=== PATIENT | male | born 1985 | race Caucasian/White ===

== ENCOUNTER 2018-02-08 01:10 | Emergency (ER) | payer MEDICAID ==
[2018-02-08] MEDS ORDERED: Ketorolac 30 MG/ML SDV IVPUSH ONE (01:17)
--- NOTE | 2018-02-08 01:24 | EDM.PDOC ---
ED HPI GENERAL MEDICAL PROBLEM - General Chief Complaint: Lower Extremity Injury/Pain Stated Complaint: MEDICAL VIA [facility] Time Seen by Provider: 02/08/18 01:10 Source of Information: Reports: Patient, EMS, RN History Limitations: Reports: No Limitations - History of Present Illness INITIAL COMMENTS - FREE TEXT/NARRATIVE: 33 yo male got knocked down by a cow tonight. Arrives via EMS with pain in the R hip area. Dilaudid 2 mg IV given en route. Onset: Today Onset Date: 02/08/18 Onset Time: 00:35 Duration: Minutes:, Constant Location: Reports: Pelvis (right), Lower Extremity, Right Quality: Reports: Ache Severity: Moderate Improves with: Reports: Rest Worsens with: Reports: Movement Context: Reports: Trauma Associated Symptoms: Reports: No Other Symptoms Treatments [employer]: Reports: Other (see below) (IV Dilaudid) Right Hip Pain Score (Numeric/FACES): 2 - Related Data Allergies Allergy/AdvReac Type Severity Reaction Status Date / Time methylphenidate Allergy Hives Verified 02/08/18 01:12 [From Ritalin] Home Meds: Home Meds Cyclobenzaprine [Flexeril] 10 mg PO ASDIRECTED 02/08/18 [History] FLUoxetine HCl [Prozac] 40 mg PO BID 02/08/18 [History] buPROPion [Wellbutrin] 100 mg PO DAILY 02/08/18 [History] traZODone 100 mg PO DAILY 02/08/18 [History] Review of Systems - Review of Systems Review Of Systems: See Below Constitutional: Reports: No Symptoms Eyes: Reports: No Symptoms Ears: Reports: No Symptoms Nose: Reports: No Symptoms Mouth/Throat: Reports: No Symptoms Respiratory: Reports: No Symptoms Cardiovascular: Reports: No Symptoms GI/Abdominal: Reports: No Symptoms Musculoskeletal: Reports: Joint Pain (Right hip area) Skin: Reports: No Symptoms Neurological: Reports: No Symptoms Psychiatric: Reports: No Symptoms ED EXAM, GENERAL - Physical Exam Exam: See Below Exam Limited By: No Limitations General Appearance: Alert, WD/WN, No Apparent Distress Eye Exam: Bilateral Eye: Normal Inspection Ears: Normal External Exam, Normal Canal, Hearing Grossly Normal Ear Exam: Bilateral Ear: Auricle Normal, Canal Normal Nose: Normal Inspection, Normal Mucosa, No Blood Throat/Mouth: Normal Inspection, Normal Lips, Normal Oropharynx, Normal Voice, No Airway Compromise Head: Atraumatic, Normocephalic Neck: Normal Inspection, Supple, Non-Tender Respiratory/Chest: No Respiratory Distress, Lungs Clear, Normal Breath Sounds, No Accessory Muscle Use Cardiovascular: Regular Rate, Rhythm, No Edema GI/Abdominal: Normal Bowel Sounds, Soft, Non-Tender, No Distention Back Exam: Normal Inspection. No: CVA Tenderness (R), CVA Tenderness (L) Extremities: Normal Inspection, No Pedal Edema, Limited Range of Motion (unable to move R leg due to pain). No: Normal Range of Motion, Non-Tender Neurological: Alert, Oriented, CN II-XII Intact, Normal Cognition, No Motor/ Sensory Deficits Psychiatric: Normal Affect, Normal Mood Skin Exam: Warm, Dry, Intact, Normal Color, No Rash, Other (Covered in cow manure.) Course - Vital Signs Last Recorded V/S: Last Vital Signs Temp 35.9 C 02/08/18 01:23 Pulse 64 02/08/18 01:23 Resp 16 02/08/18 01:23 BP 127/80 02/08/18 01:23 Pulse Ox 99 02/08/18 01:23 - Orders/Labs/Meds Orders: Active Orders 24 hr Category Date Time Status Hip Min 2V or 3V Rt [CR] Stat Exams 02/08/18 01:17 Taken Pelvis 1V or 2V [CR] Stat Exams 02/08/18 01:17 Taken Meds: Medications Discontinued Medications Generic Name Dose Route Start Last Admin Trade Name Freq PRN Reason Stop Dose Admin Ketorolac Tromethamine 30 mg 02/08/18 01:17 02/08/18 01:35 Toradol IVPUSH 02/08/18 01:18 30 mg ONETIME ONE Administration - Radiology Interpretation Free Text/Narrative:: pelvis X-ray-neg R hip X-ray-neg Departure - Departure Time of Disposition: 02:35 Disposition: Home, Self-Care 01 Condition: Fair Clinical Impression: Contusion of right hip Qualifiers: Encounter type: initial encounter Qualified Code(s): S70.01XA - Contusion of right hip, initial encounter - Discharge Information Referrals: PCP,None [Primary Care Provider] - Forms: ED Department Discharge - My Orders Last 24 Hours: My Active Orders 02/08/18 01:17 Hip Min 2V or 3V Rt [CR] Stat Pelvis 1V or 2V [CR] Stat - Assessment/Plan Last 24 Hours: My Active Orders 02/08/18 01:17 Hip Min 2V or 3V Rt [CR] Stat Pelvis 1V or 2V [CR] Stat
--- NOTE | 2018-02-10 08:50 | CR ---
[facility] Clinical History: Injury Findings: No acute fracture or dislocation is noted. No destructive changes are present. Impression: Negative
--- NOTE | 2018-02-10 08:50 | CR ---
Hip Min 2V or 3V Rt CLINICAL HISTORY: Injury FINDINGS: No acute fracture or dislocation is noted. No destructive changes are present. The joint sp aces are maintained Impression: Negative.
== END 2018-02-08 03:31 | disposition home or self-care (01) ==
LOC: JP.ED 01:10
DX: S70.01XA Contusion of right hip, initial encounter (principal); Z88.8 Allergy status to other drugs, medicaments and biological substances; Z79.899 Other long term (current) drug therapy; W55.22XA Struck by cow, initial encounter
CPT/HCPCS: 72170; 73502; 96374; 99284; J1885; 99283

== ENCOUNTER 2018-05-14 18:27 | Emergency (ER) | payer MEDICAID ==
--- NOTE | 2018-05-14 19:49 | EDM.PDOC ---
ED HPI GENERAL MEDICAL PROBLEM - General Chief Complaint: Upper Extremity Injury/Pain Stated Complaint: RIGHT HAND INJURY, PUNCHED COW Time Seen by Provider: 05/14/18 19:40 Source of Information: Reports: Patient History Limitations: Reports: No Limitations - History of Present Illness INITIAL COMMENTS - FREE TEXT/NARRATIVE: 33-year-old male with a right hand injury. 19 hours ago he punched a cow when it wasn't cooperating. No other injury. His hand is now swollen and painful and he wants it checked. Onset: Sudden Location: Reports: Upper Extremity, Right Quality: Reports: Throbbing Worsens with: Reports: Movement Associated Symptoms: Reports: No Other Symptoms Righrt Hand Pain Score (Numeric/FACES): 10 - Related Data Allergies Allergy/AdvReac Type Severity Reaction Status Date / Time methylphenidate Allergy Hives Verified 05/14/18 19:36 [From Ritalin] Home Meds: Home Meds Cyclobenzaprine [Flexeril] 10 mg PO ASDIRECTED 02/08/18 [History] FLUoxetine HCl [Prozac] 40 mg PO BID 02/08/18 [History] buPROPion [Wellbutrin] 100 mg PO DAILY 02/08/18 [History] traZODone 100 mg PO DAILY 02/08/18 [History] Celecoxib 200 mg PO BID 05/14/18 [History] Past Medical History HEENT History: Reports: Hard of Hearing, Impaired Vision Genitourinary History: Reports: None Musculoskeletal History: Reports: Fracture, Other (See Below) Other Musculoskeletal History: lumbar back trouble Neurological History: Reports: Concussion Psychiatric History: Reports: ADHD, Anxiety, Depression, PTSD - Infectious Disease History Infectious Disease History: Reports: Chicken Pox - Past Surgical History HEENT Surgical History: Reports: Tonsillectomy Male Surgical History: Reports: Other (See Below) Other Male Surgeries/Procedures: inguinal hernia Social & Family History - Tobacco Use Smoking Status *Q: Current Every Day Smoker Years of Tobacco use: 25 Packs/Tins Daily: 1 Second Hand Smoke Exposure: No - Caffeine Use Caffeine Use: Reports: Energy Drinks, Soda - Alcohol Use Days Per Week of Alcohol Use: 2 Number of Drinks Per Day: 2 Total Drinks Per Week: 4 - Recreational Drug Use Recreational Drug Use: No Review of Systems - Review of Systems Review Of Systems: See Below Constitutional: Denies: Fever Respiratory: Denies: Shortness of Breath Cardiovascular: Denies: Chest Pain GI/Abdominal: Denies: Abdominal Pain Skin: Reports: Bruising (Some bruising of the hand along with swelling) Neurological: Denies: Paresthesia ED EXAM, GENERAL - Physical Exam Exam: See Below Exam Limited By: No Limitations General Appearance: Alert, No Apparent Distress Head: Atraumatic Respiratory/Chest: No Respiratory Distress Extremities: Other (Exam is otherwise limited to the right hand. There is swelling and tenderness over the dorsal aspect of the hand over the fourth and fifth metacarpal. Slight bony tenderness, no deformity.) Course - Vital Signs Last Recorded V/S: Last Vital Signs Temp 97.9 F 05/14/18 19:34 Pulse 94 05/14/18 19:34 Resp 12 05/14/18 19:34 BP 127/94 H 05/14/18 19:34 Pulse Ox 99 05/14/18 19:34 - Orders/Labs/Meds Orders: Active Orders 24 hr Category Date Time Status Hand Comp Min 3V Rt [CR] Stat Exams 05/14/18 19:46 Taken - Re-Assessments/Exams Free Text/Narrative Re-Assessment/Exam: 05/14/18 19:49 Right hand x-ray was obtained. Departure - Departure Time of Disposition: 20:07 Disposition: Home, Self-Care 01 Condition: Good Clinical Impression: Contusion of right hand, initial encounter - Discharge Information Instructions: Contusion, [id number] Referrals: Sandie Blake PA-C [Primary Care Provider] - Forms: ED Department Discharge Care Plan Goals: Wrap hand for comfort and swelling, ibuprofen should help and avoid further injury if possible. Recheck in 5-7 days if not improving satisfactorily. - My Orders Last 24 Hours: My Active Orders 05/14/18 19:46 Hand Comp Min 3V Rt [CR] Stat - Assessment/Plan Last 24 Hours: My Active Orders 05/14/18 19:46 Hand Comp Min 3V Rt [CR] Stat
--- NOTE | 2018-05-15 08:49 | CR ---
Hand Comp Min 3V Rt CLINICAL HISTORY: Injury FINDINGS: There is no acute fracture or dislocation of the hand. There is some minimal deformity of the distal aspect of the fifth metacarpal which may be related to old injury. Impression: No acute fracture or dislocation
== END 2018-05-14 20:15 | disposition home or self-care (01) ==
LOC: JP.ED 18:27
DX: S60.221A Contusion of right hand, initial encounter (principal); F17.210 Nicotine dependence, cigarettes, uncomplicated; Z88.8 Allergy status to other drugs, medicaments and biological substances; W55.22XA Struck by cow, initial encounter
CPT/HCPCS: 73130-26-RT; 73130-RT; 99284

== ENCOUNTER 2018-10-12 13:45 | Emergency (ER) | payer MEDICAID ==
--- NOTE | 2018-10-12 15:38 | EDM.PDOC ---
ED HPI GENERAL MEDICAL PROBLEM - General Chief Complaint: Neck Problem Stated Complaint: SORE SHOULDER Time Seen by Provider: 10/12/18 15:24 Source of Information: Reports: Patient, RN Notes Reviewed History Limitations: Reports: No Limitations - History of Present Illness INITIAL COMMENTS - FREE TEXT/NARRATIVE: 33-year-old gentleman presents emergency department day complaint of neck pain, he states been going on for a couple of days denies any trauma he does do some heavy lifting at work which may be related to this not sure no difficulty swallowing or difficulty breathing Right Upper Back Pain Score (Numeric/FACES): 8 - Related Data Allergies Allergy/AdvReac Type Severity Reaction Status Date / Time methylphenidate Allergy Hives Verified 10/12/18 14:09 [From Ritalin] Home Meds: Home Meds FLUoxetine HCl [Prozac] 40 mg PO BID 02/08/18 [History] buPROPion [Wellbutrin] 100 mg PO DAILY 02/08/18 [History] traZODone 100 mg PO BEDTIME PRN 02/08/18 [History] Celecoxib 200 mg PO BID 05/14/18 [History] Pantoprazole Sodium 40 mg PO DAILY 10/12/18 [History] Past Medical History HEENT History: Reports: Hard of Hearing, Impaired Vision Gastrointestinal History: Reports: GERD Musculoskeletal History: Reports: Fracture, Other (See Below) Other Musculoskeletal History: lumbar back trouble Neurological History: Reports: Concussion Psychiatric History: Reports: ADHD, Anxiety, Depression, PTSD - Infectious Disease History Infectious Disease History: Reports: Chicken Pox - Past Surgical History HEENT Surgical History: Reports: Tonsillectomy Male Surgical History: Reports: Other (See Below) Other Male Surgeries/Procedures: inguinal hernia Social & Family History - Tobacco Use Smoking Status *Q: Light Tobacco Smoker Years of Tobacco use: 14 Packs/Tins Daily: 0.1 - Caffeine Use Caffeine Use: Reports: Coffee - Recreational Drug Use Recreational Drug Use: No ED ROS GENERAL - Review of Systems Review Of Systems: See Below (Findings canceled it their winter lab still) Constitutional: Reports: No Symptoms ( make sure his kidney function is) HEENT: Reports: No Symptoms Respiratory: Reports: No Symptoms Cardiovascular: Reports: Dyspnea on Exertion Musculoskeletal: Reports: Neck Pain ED EXAM, UPPER BACK/NECK PAIN - Physical Exam Exam: See Below Text/Narrative:: Examination of the neck is supple no thyromegaly no tracheal deviation he is tender to palpation paraspinal muscles predominately along the deltoid and rhomboid area on the right side Exam Limited By: No Limitations General Appearance: Alert, WD/WN, No Apparent Distress Cardiovascular/Respiratory: No Respiratory Distress Course - Vital Signs Last Recorded V/S: Last Vital Signs Temp 95.9 F 10/12/18 14:12 Pulse 74 10/12/18 14:12 Resp 16 10/12/18 14:12 BP 116/73 10/12/18 14:12 Pulse Ox 100 10/12/18 14:12 - Orders/Labs/Meds Meds: Medications Discontinued Medications Generic Name Dose Route Start Last Admin Trade Name Freq PRN Reason Stop Dose Admin Cyclobenzaprine HCl 10 mg 10/12/18 15:34 10/12/18 15:44 Flexeril PO 10/12/18 15:35 10 mg ONETIME ONE Administration Ketorolac Tromethamine 60 mg 10/12/18 15:34 10/12/18 15:44 Toradol IM 10/12/18 15:35 60 mg ONETIME ONE Administration Departure - Departure Time of Disposition: 16:21 (On) Disposition: Home, Self-Care 01 Condition: Fair Clinical Impression: Rhomboid muscle strain Qualifiers: Encounter type: initial encounter Qualified Code(s): S29.012A - Strain of muscle and tendon of back wall of thorax, initial encounter - Discharge Information Referrals: Sandie Blake PA-C [Primary Care Provider] - Forms: ED Department Discharge Additional Instructions: Continued ibuprofen or Tylenol as needed for pain control, use Flexeril as needed for muscle relaxant, Please followup with your primary care provider in 3-5 days if not better, please call return to the emergency department with worsening of symptoms. - Assessment/Plan Plan: Assessment Acuity = acute Site and laterality = rhomboid strain Etiology = probably secondary lifting injury Manifestations = none Location of injury = Home Lab values = none Plan He had good improvement with combination Flexeril and Toradol discharge home with Flexeril 10 mg by mouth 3 times a day when necessary total #15 follow-up primary care 3-5 days if not better This note was dictated using [employer] voice recognition software please call with any questions on syntax or grammar.
[2018-10-12] MEDS: Cyclobenzaprine 10 MG Tab PO ONE (15:44)
[2018-10-12] MEDS: Ketorolac 60 MG/2 ML SDV IM ONE (15:44)
== END 2018-10-12 16:32 | disposition home or self-care (01) ==
LOC: JP.ED 13:45
DX: S29.012A Strain of muscle and tendon of back wall of thorax, initial encounter (principal); F17.210 Nicotine dependence, cigarettes, uncomplicated; Z88.8 Allergy status to other drugs, medicaments and biological substances; Z79.899 Other long term (current) drug therapy; X50.0XXA Overexertion from strenuous movement or load, initial encounter
CPT/HCPCS: 96372; 99283; A9270; J1885

== ENCOUNTER 2021-02-04 09:15 | Emergency (ER) | payer MEDICAID ==
[2021-02-04] MEDS ORDERED: Lactated Ringers 1,000 ML IV ONE ×2 (09:20→10:32)
[2021-02-04] MEDS ORDERED: levETIRAcetam 1,000 MG in Sodium Chloride 0.9% 100 ML IV ONE ×2 (09:34→10:00)
--- NOTE | 2021-02-04 09:52 | EDM.PDOC ---
ED HPI GENERAL MEDICAL PROBLEM - General Chief Complaint: Behavioral/Psych Stated Complaint: OVERDOSE Time Seen by Provider: 02/04/21 09:20 Source of Information: Reports: EMS, Old Records. Denies: Patient History Limitations: Reports: Other (altered LOC) - History of Present Illness INITIAL COMMENTS - FREE TEXT/NARRATIVE: 36 yo male employee of [employer] was brought from work via EMS for altered LOC. He wrote a note implying OD of propranolol. It is unclear if he ingested anything else or when. Has an order of protection against being near his ? . No seizure hx documented. He is obtunded on arrival and not able to offer any history. Onset: Today Onset Date: 02/04/21 Duration: Minutes: (?) Location: Reports: Generalized Quality: Reports: Other (pain not reported) Severity: Severe (severely altered) Improves with: Reports: None Worsens with: Reports: Other (? time) Context: Reports: Other (See HPI) Associated Symptoms: Reports: Seizure (in ER. ) Treatments [employer]: Reports: Other (see below) (none) - Related Data Allergies Allergy/AdvReac Type Severity Reaction Status Date / Time methylphenidate Allergy Hives Verified 10/12/18 14:09 [From Ritalin] Home Meds: Home Meds FLUoxetine HCl [Prozac] 40 mg PO BID 02/08/18 [History] buPROPion [Wellbutrin] 100 mg PO DAILY 02/08/18 [History] traZODone 100 mg PO BEDTIME PRN 02/08/18 [History] Celecoxib 200 mg PO BID 05/14/18 [History] Pantoprazole Sodium 40 mg PO DAILY 10/12/18 [History] Propranolol [Inderal] 20 mg PO Q6H PRN 02/04/21 [History] Past Medical History HEENT History: Reports: Hard of Hearing, Impaired Vision Gastrointestinal History: Reports: GERD Musculoskeletal History: Reports: Fracture, Other (See Below) Other Musculoskeletal History: lumbar back trouble Neurological History: Reports: Concussion Psychiatric History: Reports: ADHD, Anxiety, Depression, PTSD - Infectious Disease History Infectious Disease History: Reports: Chicken Pox - Past Surgical History HEENT Surgical History: Reports: Tonsillectomy Male Surgical History: Reports: Other (See Below) Other Male Surgeries/Procedures: inguinal hernia Social & Family History - Caffeine Use Caffeine Use: Reports: Coffee ED ROS GENERAL - Review of Systems Review Of Systems: Unable To Obtain Reason Not Obtained: altered LOC Constitutional: Reports: Malaise, Weakness (generalized) ED EXAM, NEURO - Physical Exam Exam: See Below Exam Limited By: No Limitations General Appearance: WD/WN, Obtunded. No: Alert Eye Exam: Bilateral Eye: Normal Inspection Ears: Normal External Exam, Normal Canal, Hearing Grossly Normal, Normal TMs Nose: Normal Inspection, No Blood Throat/Mouth: Normal Inspection, Normal Lips, Normal Oropharynx, Normal Voice, No Airway Compromise Head Exam: Atraumatic, Normocephalic Neck: Normal Inspection Respiratory/Chest: No Respiratory Distress, Lungs Clear, Normal Breath Sounds, No Accessory Muscle Use Cardiovascular: Regular Rate, Rhythm, No Edema GI/Abdominal: Normal Bowel Sounds, Soft, Non-Tender, No Distention Neurological: Other (obtunded). No: Alert, Oriented x 3 Back Exam: Normal Inspection Extremities: Normal Inspection, Normal Range of Motion, No Pedal Edema Psychiatric: Other (not responding) Skin Exam: Warm, Dry, Intact, Normal Color, No Rash #1 Interpretation EKG Date: 02/04/21 Time: 10:50 Rhythm: NSR Rate (Beats/Min): 56 Mobile: Normal P-Wave: Present QRS: Normal ST-T: Normal QT: Normal Comparison: NA - No Prior EKG (LVH present) Course - Vital Signs Last Recorded V/S: Last Vital Signs Temp 37.1 C 02/04/21 09:43 Pulse 55 L 02/04/21 11:06 Resp 14 02/04/21 11:06 BP 124/70 02/04/21 11:06 Pulse Ox 98 02/04/21 11:06 - Orders/Labs/Meds Orders: Active Orders 24 hr Category Date Time Status Cardiac Monitoring [RC] .As Directed Care 02/04/21 09:20 Active EKG Documentation Completion [RC] ASDIRECTED Care 02/04/21 10:31 Active Church Catheter Insertion [Insert Urinary Catheter] [OM. Care 02/04/21 09:30 Ordered PC] Q24H Urinary Catheter Assessment [RC] ASDIRECTED Care 02/04/21 09:20 Active EKG 12 Lead [EK] Routine Ther 02/04/21 10:30 Ordered Labs: Laboratory Tests 06/12/21 06/12/21 06/12/21 Range/Units 09:20 09:20 09:20 WBC 6.6 (4.5-11.0) K/uL RBC 4.64 (4.30-5.90) M/uL Hgb 14.0 (12.0-15.0) g/dL Hct 41.1 (40.0-54.0) % MCV 89 (80-98) fL MCH 30 (27-31) pg MCHC 34 (32-36) % Plt Count 313 (150-400) K/uL Sodium 142 (140-148) mmol/L Potassium 3.4 L (3.6-5.2) mmol/L Chloride 104 (100-108) mmol/L Carbon Dioxide 26 (21-32) mmol/L Anion Gap 15.4 H (5.0-14.0) mmol/L BUN 11 (7-18) mg/dL Creatinine 1.6 H (0.8-1.3) mg/dL Est Cr Clr Drug Dosing 70.73 mL/min Estimated GFR (MDRD) 49 L (>60) Glucose 131 H (74-106) mg/dL Calcium 8.9 (8.5-10.1) mg/dL Phosphorus (2.5-4.9) mg/dL Magnesium (1.8-2.4) mg/dL Total Bilirubin 0.5 D (0.2-1.0) mg/dL AST 22 (15-37) U/L ALT 32 D (12-78) U/L Alkaline Phosphatase 111 (46-116) U/L Total Protein 7.2 (6.4-8.2) g/dL Albumin 4.1 (3.4-5.0) g/dL Globulin 3.1 (2.3-3.5) g/dL Albumin/Globulin Ratio 1.3 (1.2-2.2) Urine Color (YELLOW) Urine Appearance (CLEAR) Urine pH (5.0-8.0) Ur Specific [place] (1.008-1.030) Urine Protein (NEGATIVE) mg/dL Urine Glucose (UA) (NEGATIVE) mg/dL Urine Ketones (NEGATIVE) mg/dL Urine Occult Blood (NEGATIVE) Urine Nitrite (NEGATIVE) Urine Bilirubin (NEGATIVE) Urine Urobilinogen (0.2-1.0) EU/dL Ur Leukocyte Esterase (NEGATIVE) Urine RBC (0-5) Urine WBC (0-5) Ur Epithelial Cells Amorphous Sediment Urine Bacteria Urine Mucus Salicylates 2.5 (2.0-20.0) mg/dL Urine Opiates Screen (NEGATIVE) Ur Oxycodone Screen (NEGATIVE) Urine Methadone Screen (NEGATIVE) Ur Propoxyphene Screen (NEGATIVE) Acetaminophen 0.0 L (10.0-30.0) ug/mL Ur Barbiturates Screen (NEGATIVE) Ur Tricyclics Screen (NEGATIVE) Ur Phencyclidine Scrn (NEGATIVE) Ur Amphetamine Screen (NEGATIVE) U Methamphetamines Scrn (NEGATIVE) Urine MDMA Screen (NEGATIVE) U Benzodiazepines Scrn (NEGATIVE) U Cocaine Metab Screen (NEGATIVE) U Marijuana (THC) Screen (NEGATIVE) Ethyl Alcohol mg/dL 02/04/21 02/04/21 02/04/21 Range/Units 09:20 09:32 09:32 WBC (4.5-11.0) K/uL RBC (4.30-5.90) M/uL Hgb (12.0-15.0) g/dL Hct (40.0-54.0) % MCV (80-98) fL MCH (27-31) pg MCHC (32-36) % Plt Count (150-400) K/uL Sodium (140-148) mmol/L Potassium (3.6-5.2) mmol/L Chloride (100-108) mmol/L Carbon Dioxide (21-32) mmol/L Anion Gap (5.0-14.0) mmol/L BUN (7-18) mg/dL Creatinine (0.8-1.3) mg/dL Est Cr Clr Drug Dosing mL/min Estimated GFR (MDRD) (>60) Glucose (74-106) mg/dL Calcium (8.5-10.1) mg/dL Phosphorus (2.5-4.9) mg/dL Magnesium (1.8-2.4) mg/dL Total Bilirubin (0.2-1.0) mg/dL AST (15-37) U/L ALT (12-78) U/L Alkaline Phosphatase (46-116) U/L Total Protein (6.4-8.2) g/dL Albumin (3.4-5.0) g/dL Globulin (2.3-3.5) g/dL Albumin/Globulin Ratio (1.2-2.2) Urine Color Yellow (YELLOW) Urine Appearance Slightly cloudy A (CLEAR) Urine pH 6.0 (5.0-8.0) Ur Specific [place] 1.025 (1.008-1.030) Urine Protein Negative (NEGATIVE) mg/dL Urine Glucose (UA) Negative (NEGATIVE) mg/dL Urine Ketones Negative (NEGATIVE) mg/dL Urine Occult Blood Negative (NEGATIVE) Urine Nitrite Negative (NEGATIVE) Urine Bilirubin Negative (NEGATIVE) Urine Urobilinogen 0.2 (0.2-1.0) EU/dL Ur Leukocyte Esterase Negative (NEGATIVE) Urine RBC 0-5 (0-5) Urine WBC 0-5 (0-5) Ur Epithelial Cells Not seen Amorphous Sediment Rare Urine Bacteria Not seen Urine Mucus Many Salicylates (2.0-20.0) mg/dL Urine Opiates Screen Negative (NEGATIVE) Ur Oxycodone Screen Presumptive positive H (NEGATIVE) Urine Methadone Screen Negative (NEGATIVE) Ur Propoxyphene Screen Negative (NEGATIVE) Acetaminophen (10.0-30.0) ug/mL Ur Barbiturates Screen Negative (NEGATIVE) Ur Tricyclics Screen Negative (NEGATIVE) Ur Phencyclidine Scrn Negative (NEGATIVE) Ur Amphetamine Screen Presumptive positive H (NEGATIVE) U Methamphetamines Scrn Negative (NEGATIVE) Urine MDMA Screen Negative (NEGATIVE) U Benzodiazepines Scrn Presumptive positive H (NEGATIVE) U Cocaine Metab Screen Negative (NEGATIVE) U Marijuana (THC) Screen Negative (NEGATIVE) Ethyl Alcohol < 3 mg/dL 02/04/21 Range/Units 11:01 WBC (4.5-11.0) K/uL RBC (4.30-5.90) M/uL Hgb (12.0-15.0) g/dL Hct (40.0-54.0) % MCV (80-98) fL MCH (27-31) pg MCHC (32-36) % Plt Count (150-400) K/uL Sodium (140-148) mmol/L Potassium (3.6-5.2) mmol/L Chloride (100-108) mmol/L Carbon Dioxide (21-32) mmol/L Anion Gap (5.0-14.0) mmol/L BUN (7-18) mg/dL Creatinine (0.8-1.3) mg/dL Est Cr Clr Drug Dosing mL/min Estimated GFR (MDRD) (>60) Glucose (74-106) mg/dL Calcium (8.5-10.1) mg/dL Phosphorus 2.9 (2.5-4.9) mg/dL Magnesium 1.8 (1.8-2.4) mg/dL Total Bilirubin (0.2-1.0) mg/dL AST (15-37) U/L ALT (12-78) U/L Alkaline Phosphatase (46-116) U/L Total Protein (6.4-8.2) g/dL Albumin (3.4-5.0) g/dL Globulin (2.3-3.5) g/dL Albumin/Globulin Ratio (1.2-2.2) Urine Color (YELLOW) Urine Appearance (CLEAR) Urine pH (5.0-8.0) Ur Specific [place] (1.008-1.030) Urine Protein (NEGATIVE) mg/dL Urine Glucose (UA) (NEGATIVE) mg/dL Urine Ketones (NEGATIVE) mg/dL Urine Occult Blood (NEGATIVE) Urine Nitrite (NEGATIVE) Urine Bilirubin (NEGATIVE) Urine Urobilinogen (0.2-1.0) EU/dL Ur Leukocyte Esterase (NEGATIVE) Urine RBC (0-5) Urine WBC (0-5) Ur Epithelial Cells Amorphous Sediment Urine Bacteria Urine Mucus Salicylates (2.0-20.0) mg/dL Urine Opiates Screen (NEGATIVE) Ur Oxycodone Screen (NEGATIVE) Urine Methadone Screen (NEGATIVE) Ur Propoxyphene Screen (NEGATIVE) Acetaminophen (10.0-30.0) ug/mL Ur Barbiturates Screen (NEGATIVE) Ur Tricyclics Screen (NEGATIVE) Ur Phencyclidine Scrn (NEGATIVE) Ur Amphetamine Screen (NEGATIVE) U Methamphetamines Scrn (NEGATIVE) Urine MDMA Screen (NEGATIVE) U Benzodiazepines Scrn (NEGATIVE) U Cocaine Metab Screen (NEGATIVE) U Marijuana (THC) Screen (NEGATIVE) Ethyl Alcohol mg/dL Meds: Medications Discontinued Medications Generic Name Dose Route Start Last Admin Trade Name Freq PRN Reason Stop Dose Admin Lactated Ringer's 1,000 mls @ 1,000 mls/hr 02/04/21 09:20 02/04/21 09:33 Ringers, Lactated IV 02/04/21 10:19 1,000 mls/hr BOLUS ONE Administration Levetiracetam 1,000 mg/ Sodium 110 mls @ 400 mls/hr 02/04/21 10:00 02/04/21 09:45 Chloride IV 02/04/21 10:16 400 mls/hr ONETIME ONE Administration Lactated Ringer's 1,000 mls @ 1,000 mls/hr 02/04/21 10:32 02/04/21 10:58 Ringers, Lactated IV 02/04/21 11:31 1,000 mls/hr BOLUS ONE Administration Calcium Gluconate 2 gm/ Sodium 120 mls @ 100 mls/hr 02/04/21 11:00 02/04/21 11:13 Chloride IV 02/04/21 12:11 100 mls/hr ONETIME ONE Administration Lorazepam 2 mg 02/04/21 10:52 Lorazepam 2 Mg/Ml Sdv IVPUSH 02/04/21 10:53 ONETIME ONE Midazolam HCl Confirm 02/04/21 10:33 Midazolam 1 Mg/Ml 5 Ml Sdv Administered 02/04/21 10:34 Dose 5 mg .ROUTE .STK-MED ONE Midazolam HCl 2 mg 02/04/21 10:51 02/04/21 10:34 Midazolam 1 Mg/Ml 2 Ml Sdv IVPUSH 02/04/21 10:52 2 mg ONETIME ONE Administration Naloxone HCl 0.4 mg 02/04/21 09:55 02/04/21 10:19 Naloxone 0.4 Mg/Ml Sdv IVPUSH 02/04/21 09:56 0.4 mg ONETIME STA Administration Ondansetron HCl 4 mg 02/04/21 12:01 02/04/21 12:05 Ondansetron 4 Mg/2 Ml Sdv IVPUSH 02/04/21 12:02 4 mg ONETIME ONE Administration Propofol Confirm 02/04/21 10:43 Propofol 200 Mg/20 Ml Sdv Administered 02/04/21 10:44 Dose 200 mg .ROUTE .STK-MED ONE Rocuronium [place] Confirm 02/04/21 10:43 Rocuronium 50 Mg/5 Ml Vial Administered 02/04/21 10:44 Dose 50 mg .ROUTE .STK-MED ONE - Radiology Interpretation Free Text/Narrative:: head CT scan- IMPRESSION: 1. No acute intracranial abnormality 2. Normal brain parenchymal morphology. Please note that all CT scans at this facility use dose modulation, iterative reconstruction, and/or weight-based dosing when appropriate to reduce radiation dose to as low as reasonably achievable. Dictated by Blade Gonzales MD @ 02/04/2021 10:22:24 AM (Electronic Signature) CT Results Date: 02/04/21 CT Results Time: 10:36 - Re-Assessments/Exams Free Text/Narrative Re-Assessment/Exam: 02/04/21 10:[address] [facility] accepted @ 1025h, Poison control called @ 1040h Free Text/Narrative Re-Assessment/Exam: 02/04/21 11:47 Is acting more normally now. Able to answer some questions. Now states he only took propranolol. Still not sure of the time or quantity of his ingestion. Free Text/Narrative Re-Assessment/Exam: 02/04/21 12:17 Is continuing to improve clinically. Will OK transfer to [facility] at this time. Departure - Departure Time of Disposition: 12:45 Disposition: DC/Tfer to Acute Hospital 02 Condition: Fair Clinical Impression: Suicide attempt by beta david overdose Qualifiers: Encounter type: initial encounter Qualified Code(s): T44.7X2A - Poisoning by beta-adrenoreceptor antagonists, intentional self-harm, initial encounter - Discharge Information *PRESCRIPTION DRUG MONITORING PROGRAM REVIEWED*: Not Applicable *COPY OF PRESCRIPTION DRUG MONITORING REPORT IN PATIENT ELIANE: Not Applicable Referrals: PCP,None [Primary Care Provider] - Forms: ED Department Discharge Sepsis Event Note (ED) - Evaluation Sepsis Screening Result: No Definite Risk - Focused Exam Vital Signs: Vital Signs Temp Pulse Resp BP Pulse Ox 02/04/21 11:06 55 L 14 124/70 98 02/04/21 10:43 56 L 12 117/80 97 02/04/21 10:27 57 L 16 105/71 96 02/04/21 10:12 58 L 15 109/69 96 02/04/21 09:57 59 L 11 L 105/73 96 02/04/21 09:43 37.1 C 66 14 88/56 L 96 02/04/21 09:42 60 16 102/63 95 02/04/21 09:37 60 17 95/64 96 02/04/21 09:32 60 17 101/67 95 02/04/21 09:31 61 17 98/61 93 L 02/04/21 09:27 60 16 106/72 96 02/04/21 09:23 63 16 102/70 96 02/04/21 09:17 64 12 92/54 L 96 02/04/21 09:15 37.1 C 66 14 88/56 L 96 - My Orders Last 24 Hours: My Active Orders 02/04/21 09:20 Cardiac Monitoring [RC] .As Directed Urinary Catheter Assessment [RC] ASDIRECTED 02/04/21 09:30 Church Catheter Insertion [Insert Urinary Catheter] [OM.PC] Q24H 02/04/21 10:30 EKG 12 Lead [EK] Routine 02/04/21 10:31 EKG Documentation Completion [RC] ASDIRECTED - Assessment/Plan Last 24 Hours: My Active Orders 02/04/21 09:20 Cardiac Monitoring [RC] .As Directed Urinary Catheter Assessment [RC] ASDIRECTED 02/04/21 09:30 [place] Catheter Insertion [Insert Urinary Catheter] [OM.PC] Q24H 02/04/21 10:30 EKG 12 Lead [EK] Routine 02/04/21 10:31 EKG Documentation Completion [RC] ASDIRECTED
[2021-02-04] MEDS ORDERED: Naloxone 0.4 MG/ML SDV IVPUSH STA (09:55)
--- NOTE | 2021-02-04 10:24 | CRLCT ---
For Patients: As a result of the Cures Act, medical imaging exams and procedure reports are released immediately into your electronic medical record. You may view this report before your referring provider. If you have questions, please contact your health care provider. INDICATION: Decreased level of consciousness. Seizures. COMPARISON: None. TECHNIQUE: Noncontrast CT head. FINDINGS: Normal brain parenchymal morphology. No acute intracranial hemorrhage, acute infarct, focal edema, mass effect, or fracture. No midline shift. No abnormal ventricular dilatation. Normal calvarium and skull base. Visualized paranasal sinuses and mastoid air cells are clear. Normal orbits bilaterally. IMPRESSION: 1. No acute intracranial abnormality 2. Normal brain parenchymal morphology. Please note that all CT scans at this facility use dose modulation, iterative reconstruction, and/or weight-based dosing when appropriate to reduce radiation dose to as low as reasonably achievable. Dictated by Blade Gonzales MD @ 02/04/2021 10:22:[address] Blade Gonzales @ Feb 04 2021 10:22AM
[2021-02-04] MEDS ORDERED: Midazolam 1 MG/ML 5 ML SDV ONE (10:33)
[2021-02-04] MEDS ORDERED: Propofol 200 MG/20 ML SDV ONE (10:43)
[2021-02-04] MEDS ORDERED: Rocuronium 50 MG/5 ML Vial ONE (10:43)
[2021-02-04] MEDS ORDERED: Calcium Gluconate 2 GM in Sodium Chloride 0.9% 100 ML IV ONE ×2 (10:49→11:00)
[2021-02-04] MEDS ORDERED: Midazolam 1 MG/ML 2 ML SDV IVPUSH ONE (10:51)
[2021-02-04] MEDS ORDERED: LORazepam 2 MG/ML SDV IVPUSH ONE (10:52)
[2021-02-04] MEDS ORDERED: Ondansetron 4 MG/2 ML SDV IVPUSH ONE (12:01)
== END 2021-02-04 13:07 ==
LOC: JP.ED 09:15
DX: T44.7X2A Poisoning by beta-adrenoreceptor antagonists, intentional self-harm, initial encounter (principal); K21.9 Gastro-esophageal reflux disease without esophagitis; Z79.899 Other long term (current) drug therapy; Z88.8 Allergy status to other drugs, medicaments and biological substances
CPT/HCPCS: 36415; 51702; 70450; 80053; 80143; 80179; 80305; 80307; 81001; 83735; 84100; 85027; 93005; 93010; 96365; 96367; 96375; 99285; J0610; J1953; J2250; J2310; J2405; J7120; J2704; J3490

== ENCOUNTER 2022-12-31 00:44 | Emergency (ER) | payer MEDICAID | END 2022-12-31 01:29 | disposition home or self-care (01) | LOC: JP.ED 00:44 | DX: S83.91XA Sprain of unspecified site of right knee, initial encounter (principal); K21.9 Gastro-esophageal reflux disease without esophagitis; Z87.891 Personal history of nicotine dependence; Z79.899 Other long term (current) drug therapy; Z86.16 Personal history of COVID-19; Z88.8 Allergy status to other drugs, medicaments and biological substances; X50.1XXA Overexertion from prolonged static or awkward postures, initial encounter | CPT/HCPCS: 99283 ==

== ENCOUNTER 2023-12-28 16:47 | Emergency (ER) | payer MEDICAID ==
[2023-12-28] MEDS: cefTRIAXone 2 GM in Sodium Chloride 0.9% 50 ML IV ONE (19:16)
== END 2023-12-28 19:48 | disposition home or self-care (01) ==
LOC: JP.ED 16:47
DX: L02.416 Cutaneous abscess of left lower limb (principal); F17.210 Nicotine dependence, cigarettes, uncomplicated; K21.9 Gastro-esophageal reflux disease without esophagitis; Z79.899 Other long term (current) drug therapy; Z88.8 Allergy status to other drugs, medicaments and biological substances; Z86.16 Personal history of COVID-19
CPT/HCPCS: 96365; 99282; 99283; J0696; J3490

== ENCOUNTER 2024-02-12 19:59 | Emergency (ER) | payer MEDICAID ==
[2024-02-12] MEDS: Ketorolac 30 MG/ML SDV IM ONE (20:21)
[2024-02-12 20:45] LABS: EOSINOPHILS ABSOLUTE AUTO 0.18 K/uL (0.00-0.40); EOSINOPHILS PERCENT AUTO 2.3 % (0.0-5.4); HEMATOCRIT 38.8 % (38.4-49.7); HEMOGLOBIN 13.4 g/dL (12.9-16.9); IMMATURE GRAN ABSOLUTE AUTO 0.02 K/uL (0.00-0.23); IMMATURE GRAN PERCENT AUTO 0.3 % (0.0-0.7); LYMPHOCYTES ABSOLUTE AUTO 1.15 K/uL (0.8-3.3); LYMPHOCYTES PERCENT AUTO 14.5 % (11.4-47.7); MEAN CORPUSCULAR HEMOGLOBIN 29.6 pg (31.6-35.5); MEAN CORPUSCULAR HGB CONC 34.5 g/dL (31.6-35.5); MEAN CORPUSCULAR VOLUME 85.8 fL (81.4-99.0); MONOCYTES ABSOLUTE AUTO 0.41 K/uL (0.20-0.90); MONOCYTES PERCENT AUTO 5.2 % (3.3-12.6); NEUTROPHILS ABSOLUTE AUTO 6.17 K/uL (1.0-7.6); NEUTROPHILS PERCENT AUTO 77.7 % (40.0-78.1); PLATELET COUNT,PLT 284 K/uL (130-375); RED BLOOD CELL COUNT 4.52 M/uL (4.14-5.76); WHITE BLOOD CELL COUNT,WBC 7.9 K/uL (3.2-11.0)
[2024-02-12] MEDS: Sodium Chloride 0.9% 1,000 ML IV ONE (20:52)
[2024-02-12 21:08] LABS: A/G RATIO 1.1 (1.2-2.2); ALANINE AMINOTRANSFERASE,ALT 17 U/L (12-78); ALBUMIN 3.5 g/dL (3.4-5.0); ALKALINE PHOSPHATASE 84 U/L (46-116); ANION GAP 8.7 mmol/L (5.0-14.0); ASPARTATE AMNIOTRANSFERASE,AST 14 U/L (15-37); BILIRUBIN TOTAL 0.4 mg/dL (0.2-1.0); BLOOD UREA NITROGEN,BUN 16 mg/dL (7-18); CALCIUM 9.3 mg/dL (8.5-10.1); CARBON DIOXIDE,CO2 28 mmol/L (21-32); CHLORIDE,CL 107 mmol/L (100-108); CREATININE 1.2 mg/dL (0.8-1.3); EST CRCL DRUG DOSING (CG) 102.47 mL/min; ESTIMATED GFR 79 mL/min (>60); GLUCOSE RANDOM 106 mg/dL (74-106); POTASSIUM,K 4.1 mmol/L (3.6-5.2); PROTEIN TOTAL,TP 6.7 g/dL (6.4-8.2); SODIUM,NA 144 mmol/L (140-148)
[2024-02-12 21:09] LABS: C-REACTIVE PROTEIN < 0.50 mg/dL (<0.50)
== END 2024-02-12 23:07 | disposition home or self-care (01) ==
LOC: JP.ED 19:59
DX: K52.9 Noninfective gastroenteritis and colitis, unspecified (principal); F17.200 Nicotine dependence, unspecified, uncomplicated; K21.9 Gastro-esophageal reflux disease without esophagitis; Z86.16 Personal history of COVID-19; Z79.899 Other long term (current) drug therapy; Z88.8 Allergy status to other drugs, medicaments and biological substances
CPT/HCPCS: 36415; 74176; 80053; 83605; 85025; 86140; 96372; 99284; J1885; J7030